=== PATIENT | female | born 1965 | race Caucasian/White ===

== ENCOUNTER 2023-06-17 15:45 | Outpatient (AMB) | payer OTHER, SELFPAY ==
--- NOTE | 2023-06-17 15:50 | A.OFFVIS_ITS ---
Intake Vital Signs 06/17/23 15:51 Height 5 ft 4 in Weight 155 lb 6.814 oz BMI 26.7 BP 122/78 Blood Pressure Location Lt brachial Position Sitting Pulse 78 Pulse Oximetry (%) 95 Oxygen Delivery Method Room Air Intake Visit Reasons: Cough Intake Note: pt is here as a new patient for a cough that has been going on for a long time. unsure of source, it did occur with eating this am. Collection Specialist Required: No Allergies No Known Allergies Allergy (Verified 06/17/23 15:56) HPI HPI Comments History of Present Illness Details The patient is here for pulmonary evaluation. The patient is a 58-year-old woman presenting with a chronic cough. The patient states that she has been coughing now for many years. Although is been getting worse. She describes the cough as nonproductive indeed. Sometimes she has coughing spells. Moderate severity. She has been evaluated by multiple specialists. She did go to ENT. She was treated for reflux related cough. The patient is placed on a PPI which seems to help and also she had a barium swallow them affecting small hiatal hernia. She also had a chest x-ray which we personally reviewed demonstrating no acute disease. The patient had allergy testing in the past. She has allergies to a lot of pollen the grasses the trees. She got tested back in her 20s. At that time she did get allergy shots for period of time. although, she did complete the allergy shots and is not clear how effective they were for her. [facility] Medical History (Updated 06/17/23 @ 23:39 by Ashwin Thurston MD) Upper airway cough syndrome Chronic allergic rhinitis GERD (gastroesophageal reflux disease) Chronic cough Social History (Updated 06/17/23 @ 15:57 by GRACE Iraheta) Patient Tobacco Use Status: Never used Tobacco Review of Systems Const Denies fever(s) ENT Reports nasal congestion, Reports nasal discharge and Reports post nasal drip Card Denies chest pain Resp Denies chest congestion, Reports cough and Denies wheezing GI Reports dyspepsia and Reports heartburn Musc Reports no additional complaints Skin/Breast Denies rash Felix/Lymph Denies lymphadenopathy Aller/Immun Denies wheezing Physical Exam Vital Signs: Last Vital Signs Pulse 78 06/17/23 15:51 BP 122/78 06/17/23 15:51 Pulse Ox 95 03/18/24 15:51 Oxygen Delivery Method Room Air 06/17/23 15:51 BMI result Body Mass Index 26.7 Const Orientation/consciousness: patient oriented x3 HEENT Head: Yes normocephalic Ears: TM's normal bilaterally General nose exam: Abnormal mucous membranes and turbinates present erythematous Throat: Yes postnasal drainage Neck Neck: Yes no lymphadenopathy Chest Chest palpation & inspection: normal inspection of the chest Resp Effort & Inspection: normal respiratory effort Auscultation: clear to auscultation bilaterally Cardio Heart sounds: S1 normal heart sound present and S2 normal heart sound present GI Palpation (GI): Soft to palpation Skin General skin exam: no rashes or lesions noted Neuro General: patient oriented x3 Extrem General: Yes no clubbing, cyanosis or edema Assessment & Plan Assessment & Plan (1) Chronic cough: Code(s): R05.3 - Chronic cough (2) GERD (gastroesophageal reflux disease): Code(s): K21.9 - Gastro-esophageal reflux disease without esophagitis Qualifiers: Esophagitis presence: without esophagitis Qualified Code(s): K21.9 - Gastro-esophageal reflux disease without esophagitis (3) Chronic allergic rhinitis: Code(s): J30.9 - Allergic rhinitis, unspecified (4) Upper airway cough syndrome: Code(s): R05.8 - Other specified cough Plan start Fluticasone in am nasal rinsing at night reflux diet sleep with HOB elevated holding PPI PFTs consider repeating allergy bloodwork F/U 2-3 months Orders: Orders PFT pulmonary function test Today R05.3 - Chronic cough Medications: New fluticasone propionate 50 mcg/actuation 2 sprays intranasal DAILY 15.8 mL 11RF 30 days J31.0 - Chronic rhinitis Coding Level of Care Code New Pt Level 4 (80219) Diagnoses Chronic cough R05.3 Gastroesophageal reflux disease without esophagitis K21.9 Esophagitis presence: without esophagitis Chronic allergic rhinitis J30.9 Upper airway cough syndrome R05.8 Time Spent (min) 40
[2023-06-17 15:51] VITALS: BP 122/78; PULSE 78; O2SAT 95; BMI 26.7
== END 2023-06-17 16:24 | disposition home or self-care (01) ==
PROVIDERS: PCP Family Medicine; Visit Provider Hospitalist
DX: R05.3 Chronic cough (principal); K21.9 Gastro-esophageal reflux disease without esophagitis; J30.9 Allergic rhinitis, unspecified; R05.8 Other specified cough
CPT/HCPCS: 99204

== ENCOUNTER → 2023-06-17 15:45 | Outpatient (BNVA) | payer OTHER, SELFPAY | PROVIDERS: PCP Family Medicine; Visit Provider Hospitalist ==

== ENCOUNTER 2023-10-24 11:17 | Outpatient (AMB) | payer OTHER, SELFPAY ==
[2023-10-24 11:26] VITALS: PULSE 76; O2SAT 98; BMI 25.2
--- NOTE | 2023-10-24 11:26 | A.OFFVIS_ITS ---
Vital Signs 10/24/23 11:26 Height 5 ft 4 in Weight 146 lb 9.718 oz BMI 25.2 Pulse 76 Pulse Source Pulse Oximeter Pulse Oximetry (%) 98 Oxygen Delivery Method Room Air Intake Visit Reasons: PFT Results/Cough Director Of Exhibit Development Required: No Allergies No Known Allergies Allergy (Verified 10/24/23 11:28) HPI Comments Details: The patient is a 58-year-old woman presenting with a chronic cough. The patient states that she has been coughing now for many years. Although is been getting worse. She describes the cough as nonproductive indeed. Sometimes she has coughing spells. Moderate severity. She has been evaluated by multiple specialists. She did go to ENT. She was treated for reflux related cough. The patient is placed on a PPI which seems to help and also she had a barium swallow them affecting small hiatal hernia. She also had a chest x-ray which we personally reviewed demonstrating no acute disease. The patient had allergy testing in the past. She has allergies to a lot of pollen the grasses the trees. She got tested back in her 20s. At that time she did get allergy shots for period of time. although, she did complete the allergy shots and is not clear how effective they were for her. 10/24/2023 the patient is here for a pulmonary follow-up visit. Overall she continues to be about the same. Still complaining of a cough. Times is barky in nature and lower frequency. Moderate severity. Typically nonproductive. She did try the lifestyle changes as far as the reflux. The patient has a known hiatal hernia in addition to that did try the nasal sprays but did not seem improving she did have a chest x-ray in the past. In view of her ongoing respiratory symptoms reasonable to consider CT scan of the chest at this time to better address her chronic cough that is not responding to difficult therapy. also, we can also consider bronchoscopy to better address the airway issue if the patient continues to be symptomatic a bronchoscopy may in the meantime she did have some slight diminished breath sounds and also hopes exhalation cause therefore start her on a maintenance inhaler to see if this azithromycin some really the patient follow-up in a couple months after her CT scan of the chest in the trial with the inhaler she will continue with the head of bed elevated continue diet as he understands that the hiatal hernia problematic with i ncreasing pharyngeal and laryngeal penetration micro aspirations the indeed may be silent. [facility] Medical History (Updated 10/24/23 @ 11:45 by Ashwin Thurston MD) Hiatal hernia Upper airway cough syndrome Chronic allergic rhinitis GERD (gastroesophageal reflux disease) Chronic cough Social History (Updated 06/17/23 @ 15:57 by GRACE Iraheta) Patient Tobacco Use Status: Never used Tobacco Review of Systems Const Denies fever(s) ENT Reports nasal congestion, Reports nasal discharge and Reports post nasal drip Card Denies chest pain Resp Denies chest congestion, Reports cough and Denies wheezing GI Reports dyspepsia and Reports heartburn Musc Reports no additional complaints Skin/Breast Denies rash Felix/Lymph Denies lymphadenopathy Aller/Immun Denies wheezing Physical Exam Vital Signs: Last Vital Signs Pulse 76 10/24/23 11:26 Pulse Ox 98 10/24/23 11:26 Oxygen Delivery Method Room Air 10/24/23 11:26 BMI result Body Mass Index 25.2 Const Orientation/consciousness: patient oriented x3 HEENT Head: Yes normocephalic Ears: TM's normal bilaterally General nose exam: Abnormal mucous membranes and turbinates present erythematous Throat: Yes postnasal drainage Neck Neck: Yes no lymphadenopathy Chest Chest palpation & inspection: normal inspection of the chest Resp Effort & Inspection: normal respiratory effort and Actively coughing Auscultation: wheezes and diminished lung sounds Cardio Heart sounds: S1 normal heart sound present and S2 normal heart sound present GI Palpation (GI): Soft to palpation Skin General skin exam: no rashes or lesions noted Neuro General: patient oriented x3 Extrem General: Yes no clubbing, cyanosis or edema Assessment & Plan Assessment & Plan (1) Chronic cough: Code(s): R05.3 - Chronic cough Category: Medical (2) GERD (gastroesophageal reflux disease): Code(s): K21.9 - Gastro-esophageal reflux disease without esophagitis Category: Medical Qualifiers: Esophagitis presence: without esophagitis Qualified Code(s): K21.9 - Gastro-esophageal reflux disease without esophagitis (3) Chronic allergic rhinitis: Code(s): J30.9 - Allergic rhinitis, unspecified Category: Medical (4) Upper airway cough syndrome: Code(s): R05.8 - Other specified cough Category: Medical (5) Hiatal hernia: Code(s): K44.9 - Diaphragmatic hernia without obstruction or gangrene Category: Medical Plan stopped Fluticasone in am nasal rinsing at night reflux diet sleep with HOB elevated consider repeating allergy bloodwork CT chest consider bronchoscopy depending on the CT chest Start Wixela F/U 2-3 months Orders: Orders CT chest wo IV con 10/24/23 K44.9 - Diaphragmatic hernia without obstruction or gangrene, R05.3 - Chronic cough Medications: New fluticasone propion-salmeterol 250-50 mcg/dose (Wixela Inhub) 1 inh inhalation Q12H 60 ea 11RF 30 days Coding Level of Care Code Est Pt Level 4 (23752) Diagnoses Chronic cough R05.3 Gastroesophageal reflux disease without esophagitis K21.9 Esophagitis presence: without esophagitis Chronic allergic rhinitis J30.9 Upper airway cough syndrome R05.8 Hiatal hernia K44.9 Time Spent (min) 17
== END 2023-10-24 11:53 | disposition home or self-care (01) ==
PROVIDERS: PCP Family Medicine; Visit Provider Hospitalist
DX: R05.3 Chronic cough (principal); K21.9 Gastro-esophageal reflux disease without esophagitis; J30.9 Allergic rhinitis, unspecified; R05.8 Other specified cough; K44.9 Diaphragmatic hernia without obstruction or gangrene
CPT/HCPCS: 99214

== ENCOUNTER → 2023-10-24 11:17 | Outpatient (BNVA) | payer OTHER, SELFPAY | PROVIDERS: PCP Family Medicine; Visit Provider Hospitalist ==

== ENCOUNTER 2023-12-03 16:25 | Outpatient (REF) | payer OTHER, SELFPAY ==
--- NOTE | ~2023-12-03 | CT_ITS ---
EXAMINATION: CT CHEST WITHOUT CONTRAST CLINICAL INFORMATION: Chronic cough. 58-year-old female. COMPARISON: None available. TECHNIQUE: Multidetector volumetric CT imaging of the chest was done. Axial MIP volume rendering provided. Sagittal and coronal reformatted images were obtained. This CT examination was performed using dose optimization techniques as appropriate, variously including the following: *Automated exposure control *Adjustment of mA and/or kV according to patient size (this includes techniques or standardized protocols for targeted exams where dose is matched to indication/reason for exam; i.e. extremities or head) *Use of iterative reconstruction technique DLP: 100 mGy-cm FINDINGS: PULMONARY NODULES: -2 mm nodule anterior right apex (series 5, image 99). -There are a few scattered tiny 2-3 mm calcified granulomata. -Linear 5 x 3 mm nodule (average diameter 4 mm) medial left upper lobe (series 5, image [id number]). This may be an mucous filled impacted bronchiole. -There are no suspicious pulmonary nodules. LUNGS: -There are no consolidations or abnormal groundglass opacities. Lungs are clear bilaterally. -There is minimal apical pleural parenchymal scarring. -There are no pleural effusions or pleural abnormalities. -Trachea, major airways, and small bronchi are normal in appearance. -Minimal linear scarring in the lingular segment. MEDIASTINUM: -Normal thyroid. -No abnormal lymphadenopathy is present. -Aorta is normal in caliber and course without calcifications or aneurysm. -Pulmonary artery is normal in size. -Mildly patulous esophagus without additional abnormality. -Heart size normal. No pericardial effusion. CORONARY ARTERY CALCIFICATION: None visualized on this study. AXILLA/CHEST WALL: -No lymphadenopathy or abnormal mass. UPPER ABDOMEN: Unremarkable. OSSEOUS STRUCTURES: Unremarkable. CT/CT chest wo IV con IMPRESSION: 1. No active pulmonary disease identified. No explanation for chronic cough. 2. A few scattered pulmonary nodules measuring up to 4 mm in the left upper lobe. Chance of malignancy less than 1%. In a high-risk patient, one year follow-up recommended. 3. Mildly patulous esophagus. Fleischner guidelines were followed. Electronically signed by: Hugh Wiley MD 01/03/2024 03:13 PM EDT
== END 2023-12-03 16:26 | disposition home or self-care (01) ==
LOC: HO.CT 16:25
PROVIDERS: PCP Family Medicine; Visit Provider Hospitalist
DX: R05.3 Chronic cough (principal); K44.9 Diaphragmatic hernia without obstruction or gangrene
CPT/HCPCS: 71250

== ENCOUNTER → 2023-12-03 16:27 | Outpatient (BNV) | payer OTHER, SELFPAY | PROVIDERS: PCP Family Medicine; Visit Provider Radiology Diagnostic Radiology | DX: R05.3 Chronic cough (principal) | CPT/HCPCS: 71250 ==

== ENCOUNTER → 2024-05-05 15:36 | Outpatient (BNVA) | payer OTHER, SELFPAY | PROVIDERS: PCP Family Medicine; Visit Provider Hospitalist ==

== ENCOUNTER 2025-01-20 15:39 | Outpatient (REF) | payer OTHER, SELFPAY ==
--- NOTE | ~2025-01-20 | CT_ITS ---
EXAMINATION: CT CHEST WITHOUT CONTRAST CLINICAL INFORMATION: R91.8 - Other nonspecific abnormal finding of lung field COMPARISON: None available. TECHNIQUE: Multidetector volumetric CT imaging of the chest was done. Axial MIP volume rendering provided. Sagittal and coronal reformatted images were obtained. This CT examination was performed using dose optimization techniques as appropriate, variously including the following: *Automated exposure control *Adjustment of mA and/or kV according to patient size (this includes techniques or standardized protocols for targeted exams where dose is matched to indication/reason for exam; i.e. extremities or head) *Use of iterative reconstruction technique FINDINGS: LUNGS: Axial CT #4 Image 23: Anterior right upper lobe nodule measuring 3 mm is unchanged. Image 66:3 x 5 mm linear density previously discussed located at the junction of the inferior and superior lingula, medially, today is demonstrated as a bronchus with wall thickening. No new pulmonary nodules are identified. Lungs are clear. MEDIASTINUM: Unremarkable CORONARY ARTERY CALCIFICATION: Absent PLEURA: There is no pleural effusion. No pleural mass or thickening. AXILLA: No lymphadenopathy. UPPER ABDOMEN: Unremarkable. OSSEOUS STRUCTURES: There is vacuum phenomena in multiple discs in the lower thoracic spine. CT/CT chest wo IV con IMPRESSION: Stable pulmonary nodule in the anterior right upper lobe requires no further follow-up. Nodular density in the lingula is related to mucus impaction within a bronchus. The bronchus demonstrates wall thickening on the current. Fleischner guidelines were followed. Electronically signed by: Luis Carlos Reyes MD 01/20/2025 05:04 PM EDT
--- OUTSIDE RECORDS SUMMARY | 2025-01-20 21:48 | XMS_ITS | Data Portability ---
Author Organization [place] - [facility], Allergy Address [address] [address] Care Team Providers Care Financial Analysis Advisor Name Role Phone TREYENEDELIA KACY Primary Care Provider Assessment No assessment recorded. Plan of Treatment Reminders Order Date Submit Date Provider Last Modified By Organization Details Last Modified Time Details Appointments None record ed. Lab None record ed. Referral None record ed. Procedures None record ed. Surgeries None record ed. Imaging None record ed. Medication Orders None record ed. Patient TargetsNo targets recorded. Patient InstructionsNo instructions recorded. Reason for Referral None Reported. Results Created Date Observation Date Name Description Value Unit Range Abnormal Flag Note LastModifiedBy Organization Detail LastModifiedTime 11/20/19 24 11/20/2022 imagi ng/avinash prasados tic resul t No observ ation record ed. [email or web address] Not Available 14:18:34 Result Notes None recorded. Problems Name Problem SNOMED Code Status Onset Date Resolution Date Notes Provider Name and Address Organization Details Recorded Time Gastroesoph ageal reflux disease without esophagitis 565500185 Active 2019 Gastro-e sophagea l reflux disease without esophagi tis; Note: Date Diagnose d: 0 4:21 PM (K21.9) Not Available [facility] 4 03:03:28 Dysphonia 94448234 Active 2019 Hoarsene ss; Note: Date Diagnose d: 0 4:21 PM (R49.0) Not Available [facility] 4 03:03:27 Cough 69543429 Active 2022 Cough, unspecif ied; Note: Date Diagnose d: 3 10:27 AM (R05.9) Not Available [facility] 4 03:03:28 Chronic refractory cough Active 2023 NORMA NIELSON MD [address] [facility],[place] [address], [place], [address] , [facility] 4 09:17:43 Problem Notes None recorded. Procedures Surgical History Date Name Laterality Status Provider Name and Address Organization Details Recorded Time 08/23/2023 FOL_DP completed NORMA NIELSON MD [address] [facility],[place] [address], [place], [address], [facility] 08/23/2023 09:37:52 Imaging Results None recorded. Procedure Notes None recorded. Medical Equipment None Reported. Medications Name Sig Start Date Stop Date Status Note LastModified by Organization Details LastModified Time doxycyclin e hyclate 100 mg capsule TAKE 1 CAPSULE BY MOUTH TWICE A DAY active Not Available Not Available No t Available dextroamph etamine-am phetamine 10 mg tablet 2018 active Medication ID: [id number] Dur ation Value: 30 Brand Name: dextroamph etamine-am phetamine Send Method: E-Prescrib ed Subs Allowed: subs OK Medicat ionGeneric Name: dextroamph etamine-am phetamine Not Available Not Available Not Available famotidine 20 mg tablet Take 1 tablet twice a day by oral route for 30 days. 2023 active Not Available Not Available Not Avai lable lorazepam 0.5 mg tablet active Not Available Not Available Not Available omeprazole 20 mg capsule,de layed release Take 1 capsule by mouth every morning one hour before meals 2022 active Medication ID: [id number] Dur ation Value: 30 Brand Name: omeprazole Send Method: E-Prescrib ed Subs Allowed: subs OK Medicat ionGeneric Name: omeprazole Not Available Not Available Not Available fluocinoni de 0.05 % topical solution 2018 active Medication ID: [id number] Dur ation Value: 30 Brand Name: fluocinoni de Send Method: E-Prescrib ed Subs Allowed: subs OK Medicat ionGeneric Name: fluocinoni de Not Available Not Available Not Available hydrocorti sone 1 %-iodoquin ol 1 % topical cream 2018 active Medication ID: [id number] Dur ation Value: 7 Brand Name: hydrocorti sone-iodoq uinol Send Method: E-Prescrib ed Subs Allowed: subs OK Special Instructio n: SHAREE AA BID Medica tionGeneri cName: hydrocorti sone-iodoq uinol Not Available Not Available Not Available amoxicilli n 875 mg-potassi um clavulanat e 125 mg tablet 2022 active Medication ID: [id number] Bra nd Name: amoxicilli n-pot clavulanat e Send Method: E-Prescrib ed Subs Allowed: subs OK Special Instructio n: Take 1 tablet by mouth every 12 hours Medi cationGene ricName: amoxicilli n-pot clavulanat e Not Available Not Available Not Available dextroamph etamine-am phetamine ER 5 mg 24hr capsule,ex tend release 2018 active Medication ID: [id number] Dur ation Value: 30 Brand Name: dextroamph etamine-am phetamine Send Method: E-Prescrib ed Subs Allowed: subs OK Medicat ionGeneric Name: dextroamph etamine-am phetamine Not Available Not Available Not Available Vitals Date Recorded Body height Provider Name an d Address Organization Details Last Updated DateTime 08/23/2023 162.56 cm Heide Soriano [place] - [facility] 08/23/2023 09:12:17 Social History None recorded. Functional Status None recorded. Mental Status None recorded. Family History Nothing Reported. Medical History No medical history recorded. Gynecological HistoryNo gynecological history recorded. Obstetrics History GPAL:G 0 P 0 0 0 0 Past Encounters Encounter ID Performer Location Encounter Start Date Encounter Closed Date Diagnosis/Indication Diagnosis SNOMED-CT Code Diagnosis ICD10 Code Diagnosis IMO Codes Diagnosis Note [id number] NORMA NIELSON MD [facility] on [address] [place] [address] 08/23/2023 09:04:51 08/23/2023 09:54:30 Chronic refractory cough 5190977684 106 R05.3 Her cough is mild and persistent . It may be pulmonary or neurogenic . I recommend she continue f/u with her pulmonolog ist. She can stop flonase as it did not seem to help. Gastroesop hageal reflux disease without esophagitis [id number] K21.9 Has stopped omeprazole without rebound symptoms or change in cough. She does note coughing after eating. We will begin a trial of famotidine to see if it helps. She will check with her pharmacy first to make sure there are no drug interactio ns (she was taking an amphetamin e prescripti on). She will f/u as needed. laryngosco py did show cobbl[place] ing possibly consistent with reflux. Health Concerns Section Related Observation LastModified by Organization Detai ls LastModified Time None Recorded Concern Status LastModified by Organization Details LastModified Time None Recorded Advance Directives Directive None Recorded Payers Insurance Date Sequence Insurance Name Policy Number Policy Jones Covered Member ID Jones Member ID Guarantor Name 10/08/[address] [place] [address] [id number] Lisbeth lBanco [id number] Lisbeth Blanco Notes Date Note Type Note Provider Name and Address Organization Details Recorded Time 08/23/2023 text/html ROS as noted in the HPI She has a history of chronic cough and was seen 04/2023. She has a history of GERD for 9 years. She denies heartburn. She has had an upper endoscopy that showed a hiatal hernia and evidence of GERD. After the last visit I suggested weaning off omeprazole. She stopped taking omeprazole in May. She began fluticasone since the last visit as well. She continues to have occasional coughing fits. NORMA NIELSON MD [address] [place] [address], [phone], [facility] - [facility] 08/23/2023 09:38:15 OBGyn Episode No OBEpisode recorded.
--- OUTSIDE RECORDS SUMMARY | 2025-01-20 21:48 | XMS_ITS | Clinical Summary ---
Author Organization [facility] Address [address] [place], [place] [id number] Phone Care Team Providers Care Tensile Tester Name Role Phone Vasyl Pickens MD Primary Care Provide r Allergies No known active allergies Medications buPROPion (WELLBUTRIN XL) 300 MG ER 24 hr tablet 5 Active ESTRING 2 mg (7.5 mcg /24 hour) vaginal ring See Instructions, INSERT 1 RING VAGINALLY AND REPLACE EVERY 90 DAYS, # 1 Unknown, 3 Refills, Maintenance, 03/19/24 10:15:00 AM EST, [facility], 160, cm, 03/12/24 9:09:00 EST, Height 4 Active FLUoxetine (PROZAC) 20 MG capsule 5 Active Active Problems Problem Noted Date Diagnosed Date Pain of right heel 09/06/2022 Social History Tobacco Use Types Packs/Day Years Used Date Smoking Tobacco: Never Smokeless Tobacco: Never Tobacco Cessation:Counseling Given: Not Answered Education Answer Date Recorded Are you interested in more education? Not on marisol e 07/27/2022 Are you concerned about learning? Not on file 07/27/2022 No 07/27/2022 No 07/27/2022 Digital Access Answer Date Recorded No 08/27/2022 No 08/27/2022 Reliable internet access at home? Not on file 08/27/2022 Device with a working camera? Not on file Comments Unknown Sex and Gender Information Value Date Recorded Sex Assigned at Not on file Legal Sex Female 9:42 PM EDT Gender Identity Not on file Sexual Orientation Not on file Last Filed Vital Signs Vital Sign Reading Time Taken Comments Blood Pressure 131/51 08/31/2024 10:42 AM EDT Pulse 81 08/31/2024 10:42 AM EDT Temperature 38.1 C (100.6 F) 08/31/2024 10:42 AM EDT Respiratory Rate 18 08/31/2024 10:42 AM EDT Oxygen Saturation 98% 08/31/2024 10:42 AM EDT Inhaled Oxygen Concentration - - Weight 68 kg (150 lb) 08/31/2024 10:42 AM EDT Height 162.6 cm (5' 4 ) 08/31/2024 10:42 AM EDT Body Mass Index 25.75 08/31/2024 10:42 AM EDT Plan of Treatment Health Maintenance Due Date Last Done Comments LIPID PANEL 1964 DEPRESSION SCREENING 1976 HEPATITIS C SCREENING 1982 HIV ONE-TIME SCREENING (18-65 YEARS) 1982 PAP SMEAR 1985 SCREENING FOR DIABETES 1999 MAMMOGRAM 2004 COLOGUARD 2009 COLONOSCOPY 2009 COLORECTAL CANCER SCREENING 2009 FIT TEST 2009 FOBT 2009 SIGMOIDOSCOPY 2009 VIRTUAL COLONOSCOPY 2009 PNEUMOCOCCAL VACCINES (50+ years) (1 of 1 - PCV) 2014 ZOSTER VACCINES (2 of 2) 04/22/2020 02/26/2020 INFLUENZA VACCINE (#1) 2024 , 02/03/2022, 01/30/2021, Additional history exists COVID-19 VACCINE (2024- season) 2024 12/16/2023, 03/08/2022, 08/02/2021, Additional history exists Adult Td,Tdap Booster 01/11/2033 01/11/2023, 011 RSV VACCINE (1 - 1-dose 75+ series) 2039 SMOKING STATUS SCREENING (Once After 26 Yrs) Completed 08/31/2024 HEPATITIS A VACCINES Aged Out No long er eligible based on patient's age to complete this topic HIB VACCINES Aged Out No longer eligi ble based on patient's age to complete this topic MENINGOCOCCAL VACCINES (ACWY) Aged Out No longer eligible based on patient's age to complete this topic MENINGOCOCCAL VACCINES (B) Aged Out N o longer eligible based on patient's age to complete this topic Medical Devices Not on file [place] [address] [address] [place] [address] HMO O O [facility] [place] [address] [place], [place] [address] [place] [address] HMO HMO HMO Care Teams Tensile Tester Relationship Specialty Start Date End Date Vasyl Pickens MD [address] [address] PCP - General Family Medicine 04/23/22 Additional Source Comments The information contained in this document represents components of the legal health record. It is not the complete legal health record.[facility]
== END 2025-01-20 15:40 | disposition home or self-care (01) ==
LOC: HO.CT 15:39
PROVIDERS: PCP Family Medicine; Visit Provider Hospitalist
DX: R91.8 Other nonspecific abnormal finding of lung field (principal)
CPT/HCPCS: 71250

== ENCOUNTER → 2025-01-20 15:41 | Outpatient (BNV) | payer OTHER, SELFPAY | PROVIDERS: PCP Family Medicine; Visit Provider Radiology Diagnostic Radiology | DX: R91.1 Solitary pulmonary nodule (principal) | CPT/HCPCS: 71250 ==

== ENCOUNTER 2025-03-02 15:41 | Outpatient (AMB) | payer OTHER, SELFPAY ==
--- OUTSIDE RECORDS SUMMARY | 2025-02-27 23:59 | XMS_ITS | Continuity of Care Document ---
Author Organization [facility] Address [address], [address] [place] [address]- Care Team Providers Care Fuel System Maintenance Worker Name Role Phone Vasyl Pickens MD Primary Care Physician Encounter [facility] Date(s): 01/28/25 - 02/27/25 [facility] [address] [place], [place] [address] Encounter Type: Triage Allergies, Adverse Reactions, Alerts No Known Medication Allergies Substance Criticality Severity Reaction Reaction Severity Status Other Environmental Allergy seasonal Active Immunizations Given and Recorded Vaccine Date Status Refusal Reason influenza virus vaccine, inactivated 12/23/23 Fox rded influenza virus vaccine, inactivated 02/03/22 Fox rded influenza virus vaccine, inactivated 01/30/21 Fox rded influenza virus vaccine, inactivated 12/23/18 Fox rded influenza virus vaccine, inactivated 12/25/17 Fox rded influenza virus vaccine, inactivated 12/25/16 Fox rded influenza virus vaccine, inactivated 12/20/15 Ofx rded influenza virus vaccine, inactivated 12/15/14 Fox rded influenza virus vaccine, inactivated 04/21/14 Give n influenza virus vaccine, inactivated 1 01/16/13 Gi gwen influenza virus vaccine, inactivated 2 02/17/10 Gi gwen SARS-CoV-2(COVID-19)mRNA-LNP vac([id number]) 12/16/23 Recorded tetanus-diphtheria toxoids (Td) 01/11/23 Given tetanus-diphtheria toxoids (Td) 3 06/09/10 Given [id number] 12y+ bivalent booster vax 03/08/22 Recorded SARS-CoV-2 mRNA ([id number]) vax 08/02/21 Recorded SARS-CoV-2 (COVID-19) mRNA BNT-162b2 vac 12/29/20 Recorded SARS-CoV-2 (COVID-19) mRNA BNT-162b2 vac 06/28/20 Recorded SARS-CoV-2 (COVID-19) mRNA BNT-162b2 vac 06/07/20 Recorded zoster vaccine, inactivated 02/26/20 Recorded influ virus vac, H1N1, inactive(oldterm) 4 04/09/09 Given Influenza Inactive (IM) (oldterm) 5 04/09/09 Given 1Result Comment: [01/16/2013] Fluarix 2Admin Note: vis given 11-09-08 3Admin Note: biologic 4Admin Note: Vim given 5Admin Note: Vim given Medications buPROPion 100 mg oral tablet 1 tablet = 100 mg, By Mouth, Daily, # 180 tablet, 0 Refills, Maintenance, 01/30/19 10:08:00 AM EDT, Tablet Start Date: 01/30/19 Status: Ordered Medication Dispense Status: Completed Quantity: 180.0 Unit: tablet Total Allowed Fills: 1 Fills Dispensed: 0 clobetasol 0.05% topical ointment See Instructions, apply a thin film twice daily for 6 weeks then decrease to twice weekly, # 60 Gm,3 Refills, Maintenance, 01/20/24 10:40:00 AM EDT, Ointment, [facility], apply a thin film twice daily for 6 weeks then decrease to twice weekly, 160, cm, 01/17/24 9:04:00 EDT, Height, 67.8, kg, 1 15:50:00 EDT, Dry Weight Start Date: 01/20/24 Status: Ordered Medication Dispense Status: Completed Quantity: 60.0 Unit: g Total Allowed Fills: 4 Fills Dispensed: 0 Estring 2 mg vaginal ring See Instructions, INSERT 1 RING VAGINALLY AND REPLACE EVERY 90 DAYS, # 1 Unknown, 3 Refills, Maintenance, 02/01/25 4:12:00 PM EST, [facility], 160, cm, 03/12/24 9:09:00 EST, Height Start Date: 02/01/25 Status: Ordered Medication Dispense Status: Completed Quantity: 1.0 Unit: Unknown Total Allowed Fills: 4 Fills Dispensed: 0 famotidine 20 mg oral tablet 0 Refill(s), Refills 0, 10/13/23 8:00:00 PM EDT, Partial fill upon patient request if the prescription is for a schedule II opioid drug. Start Date: 10/13/23 Status: Ordered Medication Dispense Status: Completed Total Allowed Fills: 1 Fills Dispensed: 0 FLUoxetine 10 mg oral capsule 10 mg, 1, capsule, By Mouth, Daily, Refills 0, Maintenance, 11/07/16 9:20:17 AM EDT Start Date: 11/07/16 Status: Ordered Medication Dispense Status: Completed Total Allowed Fills: 1 Fills Dispensed: 0 omeprazole 20 mg oral delayed release tablet 1 tablet = 20 mg, By Mouth, Daily, # 90 tablet, 1 Refills, Maintenance, 07/15/24 6:01:00 PM EDT, [facility], Partial fill upon patient request if the prescription is for a schedule II opioid drug., 160, cm, 02/04/24 11:23:00 EST, Height Start Date: 07/15/24 Stop Date: 01/11/25 Status: Ordered Medication Dispense Status: Completed Quantity: 90.0 Unit: tablet Total Allowed Fills: 2 Fills Dispensed: 0 Indications: Chronic cough; ProAir HFA 90 mcg/inh inhalation aerosol 2 puffs, Inhalation, 4 times a day, PRN as needed for wheezing, cough , short of breath, # 1 each, 0 Refills, Maintenance, 02/24/24 7:02:00 PM EST, Aerosol, [facility], Partial fill upon patientrequest if the prescription is for a schedule II opioid drug., 2 puffs Inhalation 4 times a day,p65rams,PRN:as needed for wheezing, cough , short of breath, 160, cm, 02/04/24 11:23:00 EST, Height Start Date: 02/24/24 Stop Date: 03/25/24 Status: Ordered Medication Dispense Status: Completed Quantity: 1.0 Unit: each Total Allowed Fills: 1 Fills Dispensed: 0 Indications: Unspecified asthma, uncomplicated; Wixela Inhub 250 mcg-50 mcg inhalation powder 60 each, 0 Refill(s), INHALE ONE PUFF EVERY 12 HOURS FOR 30 DAYS, 0 Refills, 01/17/24 9:04:00 AM EDT, Partial fill upon patient request if the prescription is for a schedule II opioid drug. 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 Gender identity: Identifies as female. Gender of partner(s): Male. Smoking Status Never smoker; Tobacc o user in household: No entered on: 05/07/13 Sex Sex Representation Female (finding) Patient Care team information Care Team Personnel Name: Vasyl Pickens MD Position: [facility] Physician - Primary Care Member Role: PCP Address: [address] [place] [address] Family Medicine [address] Telecom: Name: Alejandra Padilla MD Position: [facility] TRANSITION MANAGER Member Role: [employer] TRANSITION MANAGER Physician Address: [address] [place] [address] [facility] Ladle Car Operator [address] Telecom: Care Team Related Persons Name: MARY GONZALES Name: MARY GONZALES Name: DAIN GONZALES Name: DAIN GONZALES Insurance Providers Guarantor name: NICHOLAS FERRARASin Health Plan Information #: 1 Payer: [facility] HMO Payer Identifier: BONG Member Number: [id number] Group Number: [id number] Subscriber Identifier: BONG Relationship to Subscriber: self Coverage Type: Commercial Managed Care - HMO Coverage Verification Date: NA Telecom: NA Address: NA
--- OUTSIDE RECORDS SUMMARY | 2025-02-28 23:59 | XMS_ITS | Continuity of Care Document ---
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 Name Role Phone Celio CLARK, Vasyl Maloney Primary Care Physician Encounter [facility] Date(s): 01/29/25 - 02/28/25 [facility] [address] [place], [place] [address] Encounter Type: Triage Allergies, Adverse Reactions, Alerts [...] Fox rded influenza virus vaccine, inactivated 12/20/15 Fox rded influenza virus vaccine, inactivated 12/15/14 Fox rded influenza virus vaccine, inactivated 04/21/14 Give n influenza virus vaccine, inactivated 1 01/16/13 Gi gwen influenza virus vaccine, inactivated 2 02/17/10 Gi gwen SARS-CoV-2(COVID-19)mRNA-LNP vac([id number]) 12/16/23 Recorded tetanus-diphtheria toxoids (Td) 01/11/23 Given tetanus-diphtheria toxoids (Td) 3 06/09/10 Given [id number] 12y+ bivalent booster vax 03/08/22 Recorded SARS-CoV-2 mRNA (yvxqtjw-ddyv-kfwwz) vax 08/02/21 Recorded SARS-CoV-2 (COVID-19) mRNA BNT-162b2 [...] Refills, Maintenance, 01/20/24 10:40:00 AM EDT, Ointment, [facility], apply a thin film twice daily [...] 1 Refills, Maintenance, 07/15/24 6:01:00 PM EDT, [facility], Partial fill upon patient request if [...] Refills, Maintenance, 02/24/24 7:02:00 PM EST, Aerosol, [facility], Partial fill upon patientrequest if the prescription is for a schedule II opioid drug., 2 puffs Inhalation 4 times a day,[id number],PRN:as needed for wheezing, cough , short of [...] Team Personnel Name: Vasyl Pickens MD Position: [facility] Physician - Primary Care Member Role: PCP Address: [address] [place] [address] Family Medicine [address] Telecom: Name: Alejandra Padilla MD Position: [facility] END TOUCHING MACHINE OPERATOR MD Member Role: [employer] END TOUCHING MACHINE OPERATOR Physician Address: [address] [place] [address] [facility] Customer Contact Representative [address] Telecom: Care Team Related Persons Name: MARY GONZALES Name: MARY GONZALES Name: DAIN GONZALES Name: DAIN GONZALES Insurance Providers Guarantor name: NICHOLAS GONZALES Health Plan Information #: 1 Payer: [facility] HMO Payer Identifier: BONG Member Number: [id number] Group Number: [id number] Subscriber Identifier: NA Relationship to Subscriber: self Coverage Type: Commercial Managed Care - HMO Coverage Verification Date: NA Telecom: NA Address: NA
[2025-03-02 15:46] VITALS: BP 118/64; PULSE 90; O2SAT 97; BMI 25.6
--- NOTE | 2025-03-02 15:46 | MHC.OFFVIS ---
Vital Signs 03/02/25 15:46 Height 5 ft 4 in Weight 149 lb BMI 25.6 BP 118/64 Blood Pressure Location Rt brachial Position Sitting Pulse 90 Pulse Source Pulse Oximeter Pulse Oximetry (%) 97 Oxygen Delivery Method Room Air Intake Visit Reasons: Cough Allergies No Known Allergies Allergy (Verified 03/02/25 15:50) HPI Comments Details: The patient is a 59-year-old woman presenting with a chronic cough. The patient states that she has been coughing now for many years. Although is been getting worse. She describes the cough as nonproductive indeed. Sometimes she has coughing spells. Moderate severity. She has been evaluated by multiple specialists. She did go to ENT. She was treated for reflux related cough. The patient is placed on a PPI which seems to help and also she had a barium swallow them affecting small hiatal hernia. She also had a chest x-ray which we personally reviewed demonstrating no acute disease. The patient had allergy testing in the past. She has allergies to a lot of pollen the grasses the trees. She got tested back in her 20s. At that time she did get allergy shots for period of time. although, she did complete the allergy shots and is not clear how effective they were for her. 10/24/2023 the patient is here for a pulmonary follow-up visit. Overall she continues to be about the same. Still complaining of a cough. Times is barky in nature and lower frequency. Moderate severity. Typically nonproductive. She did try the lifestyle changes as far as the reflux. The patient has a known hiatal hernia in addition to that did try the nasal sprays but did not seem improving she did have a chest x-ray in the past. In view of her ongoing respiratory symptoms reasonable to consider CT scan of the chest at this time to better address her chronic cough that is not responding to difficult therapy. also, we can also consider bronchoscopy to better address the airway issue if the patient continues to be symptomatic a bronchoscopy may in the meantime she did have some slight diminished breath sounds and also hopes exhalation cause therefore start her on a maintenance inhaler to see if this azithromycin some really the patient follow-up in a couple months after her CT scan of the chest in the trial with the inhaler she will continue with the head of bed elevated continue diet as he understands that the hiatal hernia problematic with increasing pharyngeal and laryngeal penetration micro aspirations the indeed may be silent. 05/25/2024 the patient is here for a pulmonary follow-up visit. The patient continues to have cough symptoms. He has been aggravating her. She was on omeprazole for period of time and did not see any significant relief. She finally decided to take the Wixela and also the fluticasone nasal spray and then she has had dramatic improvement in her cough. She still cough some but not as much and she is happy about that. The patient did have a CT scan of the chest sometime in 12/20/2023 which we personally reviewed. No evidence of any parenchymal disease although she does have some underlying pulmonary nodules that will need follow-up next Fall. 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 Will plan to follow-up in the fall after her CT scan of the chest. She will continue the current medications for now and will challenge herself once in the summer to come off the Wixela and see if she is able to stay off the medication. If she has any issues she will call me otherwise will follow-up after her CT scan fall. 03/02/2025 the patient is here for pulmonary follow-up visit. The patient overall has been doing okay. She continues have a cough. For the most part productive in the morning and then hacky during the day. Usually her cough gets worse after eating. Likely vasomotor rhinitis. Will go ahead and give her ipratropium nasal spray. She can also use Bentson Torin as needed for cough. She stopped using the Wixela right now specially because her asthma symptoms are more in the springtime. That is perfectly fine to use it seasonally. The patient also had a CT scan of the chest which we personally reviewed. The patient has evidence of mucus plugging and pulmonary nodule that has not changed when compared to last year. I did provide her with an Aerobika that she is going to use daily to try to help her with the mucus plugging and will plan to repeat the CAT scan in a year's time. The patient will follow up in 6 months in the springtime to address her symptoms done. If she has not issues prior to this she will call for an earlier assessment recommendations. [facility] Medical History (Updated 05/05/24 @ 21:31 by Ashwin Thurston MD) Pulmonary nodules Hiatal hernia Upper airway cough syndrome Chronic allergic rhinitis GERD (gastroesophageal reflux disease) Chronic cough Social History Patient Tobacco Use Status: Never used Tobacco Review of Systems Const Denies fever(s) ENT Reports nasal congestion, Reports nasal discharge and Reports post nasal drip Card Denies chest pain Resp Denies chest congestion, Reports cough and Denies wheezing GI Reports dyspepsia and Reports heartburn Musc Reports no additional complaints Skin/Breast Denies rash Felix/Lymph Denies lymphadenopathy Aller/Immun Denies wheezing Physical Exam Vital Signs: Last Vital Signs Pulse 90 03/02/25 15:46 BP 118/64 03/02/25 15:46 Pulse Ox 97 03/02/25 15:46 Oxygen Delivery Method Room Air 03/02/25 15:46 BMI result Body Mass Index 25.6 Const Orientation/consciousness: patient oriented x3 HEENT Head: Yes normocephalic Ears: TM's normal bilaterally General nose exam: Abnormal mucous membranes and turbinates present erythematous Throat: Yes postnasal drainage Neck Neck: Yes no lymphadenopathy Chest Chest palpation & inspection: normal inspection of the chest Resp Effort & Inspection: normal respiratory effort and Actively coughing Auscultation: no wheezes and diminished lung sounds Cardio Heart sounds: S1 normal heart sound present and S2 normal heart sound present GI Palpation (GI): Soft to palpation Skin General skin exam: no rashes or lesions noted Neuro General: patient oriented x3 Extrem General: Yes no clubbing, cyanosis or edema Assessment & Plan Assessment & Plan (1) Chronic cough: Code(s): R05.3 - Chronic cough Category: Medical (2) GERD (gastroesophageal reflux disease): Code(s): K21.9 - Gastro-esophageal reflux disease without esophagitis Category: Medical Qualifiers: Esophagitis presence: without esophagitis Qualified Code(s): K21.9 - Gastro-esophageal reflux disease without esophagitis (3) Chronic allergic rhinitis: Code(s): J30.9 - Allergic rhinitis, unspecified Category: Medical (4) Upper airway cough syndrome: Code(s): R05.8 - Other specified cough Category: Medical (5) Hiatal hernia: Code(s): K44.9 - Diaphragmatic hernia without obstruction or gangrene Category: Medical (6) Pulmonary nodules: Code(s): R91.8 - Other nonspecific abnormal finding of lung field Category: Medical Plan continue Fluticasone in am holding Wixela, using -Spring nasal rinsing at night start Ipratropium nasal spray as needed Benzonates as needed Aerobika 1-2 times a day, instructions provided reflux diet sleep with HOB elevated CT chest in yr F/U Spring 2025 Orders: Orders CT chest wo IV con 1 Year R91.8 - Other nonspecific abnormal finding of lung field Medications: New ipratropium bromide administer into each nostril 2 sprays intranasal TID PRN 15 mL 6RF allergy symptoms Refilled benzonatate 200 mg PO BID PRN 60 caps 1RF cough 30 days Coding Level of Care Code Complex visit Add On G2211 Diagnoses Chronic cough R05.3 Gastroesophageal reflux disease without esophagitis K21.9 Esophagitis presence: without esophagitis Chronic allergic rhinitis J30.9 Upper airway cough syndrome R05.8 Hiatal hernia K44.9 Pulmonary nodules R91.8 Time Spent (min) 30
--- OUTSIDE RECORDS SUMMARY | 2025-03-02 17:08 | XMS_ITS | Clinical Summary ---
Author Organization [facility] Address [address] [place], [place] [id number] Phone Care Team Providers Care Dermatology Physician Assistant Name Role Phone Vasyl Pickens MD Primary [...] topic Medical Devices Not on file [place] [address] [place] [address] HMO O O [facility] [address] [place], [place] [id number] [place] [address] HMO HMO HMO Care Teams Dermatology Physician Assistant Relationship Specialty Start Date End Date Vasyl Pickens MD [address] [address] PCP - General Family Medicine 04/23/22 Additional Source Comments The information contained in this document represents components of the legal health record. It is not the complete legal health record.[facility]
--- OUTSIDE RECORDS SUMMARY | 2025-03-02 17:08 | XMS_ITS | Data Portability ---
Author Organization [place] - [facility], Allergy Address [address] [address] Care Team Providers [facility] Nurse Name Role Phone TREYENEDELIA KACY Primary Care Provider [phone] Assessment No assessment recorded. Plan of Treatment [...] Time Gastroesoph ageal reflux disease without esophagitis [id number] Active 2019 Gastro-e sophagea l reflux disease without esophagi tis; Note: Date Diagnose d: 0 4:21 PM (K21.9) Not Available [facility] 4 03:03:28 Dysphonia [id number] Active 2019 Hoarsene ss; Note: Date Diagnose d: 0 4:21 PM (R49.0) Not Available [facility] 4 03:03:27 Cough 63042907 Active 2022 Cough, unspecif ied; Note: Date Diagnose d: 3 10:27 AM (R05.9) Not Available [facility] 4 03:03:28 Chronic refractory cough Active 2023 NORMA NIELSON MD [address] [facility],[place] [address], [place], [address] , [facility] 4 09:17:43 Problem Notes None recorded. Procedures Surgical History Date Name Laterality Status Provider Name and Address Organization Details Recorded Time 08/23/2023 FOL_DP completed NORMA NIELSON MD [address] [facility],[place] [address], [place], [address], [facility] 08/23/2023 09:37:52 Imaging Results None recorded. Procedure Notes None recorded. Medical Equipment None Reported. Medications Name Sig Start Date Stop Date Status Note LastModified by Organization Details LastModified Time doxycyclin e hyclate 100 mg capsule TAKE 1 CAPSULE BY MOUTH TWICE A DAY active Not Available Not Available No t Available dextroamph etamine-am phetamine 10 mg tablet 2018 active Medication ID: [id number] Dur ation Value: 30 Brand Name: dextroamph [...] hour before meals 2022 active Medication ID: [id number] Dur ation Value: 30 Brand Name: omeprazole Send Method: E-Prescrib ed Subs Allowed: subs OK Medicat ionGeneric Name: omeprazole Not Available Not Available Not Available fluocinoni de 0.05 % topical solution 2018 active Medication ID: [id number] Dur ation Value: 30 Brand Name: fluocinoni de Send Method: E-Prescrib ed Subs Allowed: subs OK Medicat ionGeneric Name: fluocinoni de Not Available Not Available Not Available hydrocorti sone 1 %-iodoquin ol 1 % topical cream 2018 active Medication ID: [id number] Dur ation Value: 7 Brand Name: hydrocorti sone-iodoq uinol Send Method: E-Prescrib ed Subs Allowed: subs OK Special Instructio n: SHAREE AA BID Medica tionGeneri cName: hydrocorti sone-iodoq uinol Not Available Not Available Not Available amoxicilli n 875 mg-potassi um clavulanat e 125 mg tablet 2022 active Medication ID: [id number] Bra nd Name: amoxicilli n-pot clavulanat e Send Method: E-Prescrib ed Subs Allowed: subs OK Special Instructio n: Take 1 tablet by mouth every 12 hours Medi cationGene ricName: amoxicilli n-pot clavulanat e Not Available Not Available Not Available dextroamph etamine-am phetamine ER 5 mg 24hr capsule,ex tend release 2018 active Medication ID: [id number] Dur ation Value: 30 Brand Name: dextroamph etamine-am phetamine Send Method: E-Prescrib ed Subs Allowed: subs OK Medicat ionGeneric Name: dextroamph etamine-am phetamine Not Available Not Available Not Available Vitals Date Recorded Body height Provider Name an d Address Organization Details Last Updated DateTime 08/23/2023 162.56 cm Heide Soriano [place] - [facility] 08/23/2023 09:12:17 Social History None recorded. [...] [id number] NORMA NIELSON MD [facility] on [address] [place] [address] 08/23/2023 09:04:51 08/23/2023 09:54:30 Chronic refractory cough [id number] 106 R05.3 Her cough is mild and persistent . It may be pulmonary or neurogenic . I recommend she continue f/u with her pulmonolog ist. She can stop flonase as it did not seem to help. Gastroesop hageal reflux disease without esophagitis [id number] K21.9 Has stopped omeprazole without rebound symptoms [...] ID Jones Member ID Guarantor Name 10/08/[address] [place] [address] [id number] Lisbeth Blanco [id number] Lisbeth Blanco Notes Date Note Type Note [...] have occasional coughing fits. NORMA NIELSON MD [address] [place] [address], [address], [facility] - [facility] 08/23/2023 09:38:15 OBGyn Episode No OBEpisode recorded.
== END 2025-03-02 16:20 | disposition home or self-care (01) ==
LOC: HO.HPS 15:42
PROVIDERS: PCP Family Medicine; Visit Provider Hospitalist
DX: R05.3 Chronic cough (principal); K21.9 Gastro-esophageal reflux disease without esophagitis; J30.9 Allergic rhinitis, unspecified; K44.9 Diaphragmatic hernia without obstruction or gangrene; R91.8 Other nonspecific abnormal finding of lung field
CPT/HCPCS: 99214; G2211